=== PATIENT | female | born 1960 | race American Indian/Alaskan Native ===

== ENCOUNTER 2017-04-04 16:16 | Inpatient (IN) | payer MEDICARE ==
--- NOTE | 2017-04-04 17:34 | Emergency Department Report ---
HPI - General Chief Complaint: Allergic Reaction Time Seen by Provider: 04/04/17 17:14 - HPI HPI: Room 8 The patient is a 56-year-old female presenting with a chief complaint syncope seizure and chest pain. Patient states this morning she "blacked out" when she came to the reported she had a generalized tonic-clonic seizure. Patient states she noticed pain in her right wrist and stuttering speech. Patient states she didn't develop chest pain that was stabbing in nature associated shortness of breath and diaphoresis. Patient denies nausea or vomiting. The patient states she took 3 aspirin after 10-20 minutes the chest pain resolved. Patient states she's never had a stress test or cardiac catheterization. The patient is amnestic to the seizure event Location: [see above] Duration: [see above] Quality: Stabbing Severity: Moderate Modifying factors: [see above] Context: [see above] Mode of transportation: [not driving] ED Past Medical Hx - Past Medical History Hx Hypertension: Yes Additional medical history: Fibromyalgia, anxiety, PTSD, agoraphobia - Surgical History Hx Cholecystectomy: Yes Hx Appendectomy: Yes Additional Surgical History: Bilateral tubal ligation - Family History Family history: no significant - Social History Smoking Status: Current Every Day Smoker (smokes 1 pack of cigarettes every 2-1/ 2 days) Substance Use Type: Alcohol, Cocaine (crack- last used 7 days ago), Marijuana ED Review of Systems ROS: Stated complaint: SEIZURE Other details as noted in HPI Comment: All other systems reviewed and negative Constitutional: diaphoresis Eyes: denies: eye pain, eye discharge, vision change ENT: denies: ear pain, throat pain Respiratory: shortness of breath Cardiovascular: chest pain Endocrine: no symptoms reported Gastrointestinal: denies: nausea, vomiting Genitourinary: denies: urgency, dysuria, discharge Musculoskeletal: denies: back pain, joint swelling, arthralgia Skin: denies: rash, lesions Neurological: other (seizure, stuttering speech). denies: headache Psychiatric: denies: anxiety, depression Hematological/Lymphatic: denies: easy bleeding, easy bruising Physical Exam - Physical Exam Vital Signs: Vital Signs 04/04/17 17:10 Temperature 98.1 F Pulse Rate 105 H Respiratory 16 Rate Blood Pressure 158/72 [Left] O2 Sat by Pulse 99 Oximetry Physical Exam: GENERAL: The patient is well-developed well-nourished female lying on stretcher using cell phone. Patient has occasional stuttering speech HEENT: Normocephalic. Atraumatic. Extraocular motions are intact. Patient has moist mucous membranes. NECK: Supple. No meningitic signs are noted. Trachea midline CHEST/LUNGS: Clear to auscultation. There is no respiratory distress noted. HEART/CARDIOVASCULAR: Regular. There is no tachycardia. There is no gallop rub or murmur. ABDOMEN: Abdomen is soft, nontender. Patient has normal bowel sounds. There is no abdominal distention. SKIN: There is no rash. There is no edema. There is no diaphoresis. NEURO: The patient is awake, alert, and oriented. The patient is cooperative. The patient has no focal neurologic deficits. The patient has stuttering speech. Cranial nerves II through XII grossly intact, no drift, mixing machine tender cork rod equal bilaterally MUSCULOSKELETAL: There is no evidence of acute injury. ED Course Vital Signs 04/04/17 17:10 Temperature 98.1 F Pulse Rate 105 H Respiratory 16 Rate Blood Pressure 158/72 [Left] O2 Sat by Pulse 99 Oximetry ED Medical Decision Making - Lab Data Result diagrams: 04/04/17 18:58 04/04/17 18:58 Laboratory Tests 04/04/17 04/04/17 04/04/17 18:58 18:58 18:58 WBC 6.2 RBC 3.84 Hgb 12.4 Hct 37.0 MCV 96 MCH 32 MCHC 33 RDW 13.9 Plt Count 241 Sodium 139 Potassium 4.0 Chloride 100.6 Carbon Dioxide 26 Anion Gap 16 BUN 12 Creatinine 1.0 Estimated GFR > 60 BUN/Creatinine Ratio 12.00 Glucose 87 Calcium 8.3 L Magnesium 2.20 Total Creatine Kinase 135 CK-MB (CK-2) 1.9 CK-MB (CK-2) Rel Index 1.4 Troponin T < 0.010 TSH 2.260 Free T4 0.83 Urine Opiates Screen Urine Methadone Screen Ur Barbiturates Screen Ur Phencyclidine Scrn Ur Amphetamines Screen 04/04/17 20:00 WBC RBC Hgb Hct MCV MCH MCHC RDW Plt Count Sodium Potassium Chloride Carbon Dioxide Anion Gap BUN Creatinine Estimated GFR BUN/Creatinine Ratio Glucose Calcium Magnesium Total Creatine Kinase CK-MB (CK-2) CK-MB (CK-2) Rel Index Troponin T TSH Free T4 Urine Opiates Screen Presumptive negative Urine Methadone Screen Presumptive negative Ur Barbiturates Screen Presumptive negative Ur Phencyclidine Scrn Presumptive negative Ur Amphetamines Screen Presumptive negative - Radiology Data Radiology results: report reviewed (CT head), image reviewed (CT head, chest x- ray, right wrist x-ray) interpreted by me: Right wrist x-ray-no acute fracture Chest x-ray-no focal infiltrates, no pneumothorax CT head (read by radiologist)-normal examination - Differential Diagnosis seizure, electrolyte imbalance, ICH, ACS Critical care attestation.: If time is entered above; I have spent that time in minutes in the direct care of this critically ill patient, excluding procedure time. ED Disposition Clinical Impression: Syncope, Seizure, Chest pain Disposition: 09 OP ADMIT IP TO THIS HOSP Is pt being admited?: Yes Does the pt Need Aspirin: Yes Condition: Fair Instructions: Chest Pain (ED), Syncope (ED) Referrals: PRIMARY CARE, [Primary Care Provider] - 3-5 Days Time of Disposition: 20:36 (hospitalist paged)
[2017-04-04] MEDS ORDERED: ATIVAN IV ONE (17:35)
--- NOTE | 2017-04-04 18:16 | XRay Report ---
FINAL REPORT PROCEDURE: XR CHEST 1V AP TECHNIQUE: Chest radiograph anteroposterior view. CPT 98858 HISTORY: chest pain COMPARISON: No prior studies are available for comparison. FINDINGS: Heart: Normal. Mediastinum/Vessels: Normal. Lungs/Pleural space: Minimal atelectasis is seen at the lung bases. Bony thorax: Mild scoliosis is seen Life support devices: None. IMPRESSION: There is mild scoliosis. Minimal atelectasis is seen at the lung bases.
--- NOTE | 2017-04-04 18:18 | XRay Report ---
FINAL REPORT PROCEDURE: XR WRIST 2V RT TECHNIQUE: Two views of the right wrist are obtained. HISTORY: pain after seizure COMPARISON: No prior studies are available for comparison. FINDINGS: There may be mild osteoarthritic changes in the radiocarpal joint. No fracture or dislocation is seen. Mild soft tissue swelling is seen. IMPRESSION: Soft tissue swelling is seen and there are likely mild osteoarthritic changes.
--- NOTE | 2017-04-04 18:22 | Cat Scan Report ---
FINAL REPORT PROCEDURE: CT HEAD/BRAIN WO CON TECHNIQUE: Computerized tomography of the head was performed without contrast material. HISTORY: syncope, seizure COMPARISON: No prior studies are available for comparison. FINDINGS: The visualized portions of the paranasal sinuses are clear. Mastoid air cells are clear. There is no calvarial fracture. There is no hydrocephalus. No acute intracranial hemorrhage or mass effect is seen. There is no evidence of acute CVA. IMPRESSION: No abnormalities are seen.
[2017-04-04 19:23] LABS: Hemoglobin 12.4 gm/dl (10.1-14.3); Mean Corpuscular HGB Conc 33 % (30-34); Mean Corpuscular Hemoglobin 32 pg (28-32); Mean Corpuscular Volume 96 fl (79-97); Platelet Count 241 K/mm3 (140-440); Red Blood Count 3.84 M/mm3 (3.65-5.03); Red Cell Distribution Width 13.9 % (13.2-15.2); White Blood Count 6.2 K/mm3 (4.5-11.0)
[2017-04-04 19:32] LABS: Creatine Kinase MB 1.9 ng/mL (0.0-4.0)
[2017-04-04 19:33] LABS: Anion Gap 16 mmol/L; Blood Urea Nitrogen 12 mg/dL (7-17); Calcium 8.3 mg/dL (8.4-10.2); Carbon Dioxide 26 mmol/L (22-30); Chloride 100.6 mmol/L (98-107); Creatine Kinase 135 units/L (30-135); Glucose 87 mg/dL (65-100); Sodium 139 mmol/L (137-145)
[2017-04-04 20:02] LABS: Urine Drugs of Abuse Note Disclamer
[2017-04-04 20:31] LABS: Basophils % (Manual) 0 % (0.0-1.8); Blastocytes % (Manual) 0 %
[2017-04-04 20:32] LABS: Anisocytosis 1+; Diff Status Complete; Platelet Estimate Consistent w Auto
[2017-04-04] MEDS ORDERED: ASPIRIN PO ONE (20:36)
[2017-04-04] MEDS ORDERED: DULCOLAX PR PRN (22:13)
[2017-04-04] MEDS ORDERED: TYLENOL PO PRN (22:13)
[2017-04-04] MEDS ORDERED: MILK OF MAGNESIA PO PRN (22:13)
[2017-04-04] MEDS ORDERED: AMBIEN PO PRN (22:13)
--- NOTE | 2017-04-04 22:13 | History and Physical Report ---
History of Present Illness Date of examination: 04/04/17 Date of admission: 04/04/17 Chief complaint: New onset seizures Syncope Chest pain since 1pm History of present illness: The patient is a 56-year-old female presenting with a chief complaint seizures Syncope and chest pain. states that he witnessed generalized tonic- clonic seizure lasting for about a minute followed by a syncopal attack. This happened around 1 PM when the returned from work. After she recovered from the syncopal attack patient experienced chest pain and slurring of speech. No focal deficits. Patient states she noticed pain in her right wrist and stuttering speech. Patient states she didn't develop chest pain that was stabbing in nature associated shortness of breath and diaphoresis. Patient denies nausea or vomiting. The patient states she took 3 aspirin after 10-20 minutes the chest pain resolved. Patient states she's never had a stress test or cardiac catheterization. The patient is amnestic to the seizure event Location: [see above] Duration: [see above] Quality: Stabbing Severity: Moderate Modifying factors: [see above] Context: [see above] Mode of transportation: [not driving] ED Past Medical Hx - Past Medical History Hx Hypertension: Yes Additional medical history: Fibromyalgia, anxiety, PTSD, agoraphobia - Surgical History Hx Cholecystectomy: Yes Hx Appendectomy: Yes Additional Surgical History: Bilateral tubal ligation - Family History Family history: no significant - Social History Smoking Status: Current Every Day Smoker (smokes 1 pack of cigarettes every 2-1/ 2 days) Substance Use Type: Alcohol, Cocaine (crack- last used 7 days ago), Marijuana ED Review of Systems ROS: Stated complaint: SEIZURE Other details as noted in HPI Comment: All other systems reviewed and negative Constitutional: diaphoresis Eyes: denies: eye pain, eye discharge, vision change ENT: denies: ear pain, throat pain Respiratory: shortness of breath Cardiovascular: chest pain Endocrine: no symptoms reported Gastrointestinal: denies: nausea, vomiting Genitourinary: denies: urgency, dysuria, discharge Musculoskeletal: denies: back pain, joint swelling, arthralgia Skin: denies: rash, lesions Neurological: other (seizure, stuttering speech). denies: headache Psychiatric: denies: anxiety, depression Hematological/Lymphatic: denies: easy bleeding, easy bruising Past History Past Medical History: hypertension Medications and Allergies Allergies Allergy/AdvReac Type Severity Reaction Status Date / Time No Known Allergies Allergy Verified 04/04/17 22:20 Review of Systems All systems: negative Exam - Physical Exam Narrative exam: Lying in bed comfortably. Slurred speech while giving history. - Constitutional Vitals: Temp Pulse Resp BP Pulse Ox 98 F 78 18 110/72 98 04/04/17 21:33 04/04/17 21:33 04/04/17 21:33 04/04/17 21:33 04/04/17 21:33 General appearance: Present: no acute distress, well-nourished - EENT Eyes: Present: PERRL ENT: hearing intact, clear oral mucosa - Neck Neck: Present: supple, normal ROM - Respiratory Respiratory effort: normal Respiratory: bilateral: CTA - Cardiovascular Heart rate: 76 Heart Sounds: Present: S1 & S2. Absent: rub, click - Extremities Extremities: no ischemia, pulses symmetrical, No edema Peripheral Pulses: within normal limits - Abdominal General gastrointestinal: Present: soft, non-tender, non-distended, normal bowel sounds Female genitourinary: Present: normal - Rectal Rectal Exam: deferred - Integumentary Integumentary: Present: clear, warm, dry - Musculoskeletal Musculoskeletal: gait normal, strength equal bilaterally - Psychiatric Psychiatric: appropriate mood/affect, intact judgment & insight - Neurologic Neurologic: CNII-XII intact, moves all extremities, gait normal - Allied Health Allied health notes reviewed: nursing Results - Labs CBC & Chem 7: 04/05/17 04:35 04/05/17 04:35 Labs: Laboratory Last Values WBC 6.2 K/mm3 (4.5-11.0) 04/04/17 18:58 RBC 3.84 M/mm3 (3.65-5.03) 04/04/17 18:58 Hgb 12.4 gm/dl (10.1-14.3) 04/04/17 18:58 Hct 37.0 % (30.3-42.9) 04/04/17 18:58 MCV 96 fl (79-97) 04/04/17 18:58 MCH 32 pg (28-32) 04/04/17 18:58 MCHC 33 % (30-34) 04/04/17 18:58 RDW 13.9 % (13.2-15.2) 04/04/17 18:58 Plt Count 241 K/mm3 (140-440) 04/04/17 18:58 Add Manual Diff Complete 04/04/17 18:58 Total Counted 100 04/04/17 18:58 Seg Neuts % (Manual) 41.0 % (40.0-70.0) 04/04/17 18:58 Band Neutrophils % 0 % 04/04/17 18:58 Lymphocytes % (Manual) 43.0 % (13.4-35.0) H 04/04/17 18:58 Reactive Lymphs % (Man) 0 % 04/04/17 18:58 Monocytes % (Manual) 9.0 % (0.0-7.3) H 04/04/17 18:58 Eosinophils % (Manual) 7.0 % (0.0-4.3) H 04/04/17 18:58 Basophils % (Manual) 0 % (0.0-1.8) 04/04/17 18:58 Metamyelocytes % 0 % 04/04/17 18:58 Myelocytes % 0 % 04/04/17 18:58 Promyelocytes % 0 % 04/04/17 18:58 Blast Cells % 0 % 04/04/17 18:58 Nucleated RBC % Not Reportable 04/04/17 18:58 Seg Neutrophils # Man 2.5 K/mm3 (1.8-7.7) 04/04/17 18:58 Band Neutrophils # 0.0 K/mm3 04/04/17 18:58 Lymphocytes # (Manual) 2.7 K/mm3 (1.2-5.4) 04/04/17 18:58 Abs React Lymphs (Man) 0.0 K/mm3 04/04/17 18:58 Monocytes # (Manual) 0.6 K/mm3 (0.0-0.8) 04/04/17 18:58 Eosinophils # (Manual) 0.4 K/mm3 (0.0-0.4) 04/04/17 18:58 Basophils # (Manual) 0.0 K/mm3 (0.0-0.1) 04/04/17 18:58 Metamyelocytes # 0.0 K/mm3 04/04/17 18:58 Myelocytes # 0.0 K/mm3 04/04/17 18:58 Promyelocytes # 0.0 K/mm3 04/04/17 18:58 Blast Cells # 0.0 K/mm3 04/04/17 18:58 WBC Morphology Not Reportable 04/04/17 18:58 Hypersegmented Neuts Not Reportable 04/04/17 18:58 Hyposegmented Neuts Not Reportable 04/04/17 18:58 Hypogranular Neuts Not Reportable 04/04/17 18:58 Smudge Cells Not Reportable 04/04/17 18:58 Toxic Granulation Not Reportable 04/04/17 18:58 Toxic Vacuolation Not Reportable 04/04/17 18:58 Dohle Bodies Not Reportable 04/04/17 18:58 Pelger-Huet Anomaly Not Reportable 04/04/17 18:58 Raffy Rods Not Reportable 04/04/17 18:58 Platelet Estimate Consistent w auto 04/04/17 18:58 Clumped Platelets Not Reportable 04/04/17 18:58 Plt Clumps, EDTA Not Reportable 04/04/17 18:58 Large Platelets Not Reportable 04/04/17 18:58 Giant Platelets Not Reportable 04/04/17 18:58 Platelet Satelliting Not Reportable 04/04/17 18:58 Plt Morphology Comment Not Reportable 04/04/17 18:58 RBC Morphology Not Reportable 04/04/17 18:58 Dimorphic RBCs Not Reportable 04/04/17 18:58 Polychromasia Not Reportable 04/04/17 18:58 Hypochromasia Not Reportable 04/04/17 18:58 Poikilocytosis Not Reportable 04/04/17 18:58 Anisocytosis 1+ 04/04/17 18:58 Microcytosis Not Reportable 04/04/17 18:58 Macrocytosis Not Reportable 04/04/17 18:58 Spherocytes Not Reportable 04/04/17 18:58 Pappenheimer Bodies Not Reportable 04/04/17 18:58 Sickle Cells Not Reportable 04/04/17 18:58 Target Cells Not Reportable 04/04/17 18:58 Tear Drop Cells Not Reportable 04/04/17 18:58 Ovalocytes Not Reportable 04/04/17 18:58 Helmet Cells Not Reportable 04/04/17 18:58 Galdamez-[place] Bodies Not Reportable 04/04/17 18:58 [place] Rings Not Reportable 04/04/17 18:58 Milo Cells Not Reportable 04/04/17 18:58 Bite Cells Not Reportable 04/04/17 18:58 Crenated Cell Not Reportable 04/04/17 18:58 Elliptocytes Not Reportable 04/04/17 18:58 Acanthocytes (Spur) Not Reportable 04/04/17 18:58 Rouleaux Not Reportable 04/04/17 18:58 Hemoglobin C Crystals Not Reportable 04/04/17 18:58 Schistocytes Not Reportable 04/04/17 18:58 Malaria parasites Not Reportable 04/04/17 18:58 Efrem Bodies Not Reportable 04/04/17 18:58 Hem Pathologist Commnt No 04/04/17 18:58 Sodium 139 mmol/L (137-145) 04/04/17 18:58 Potassium 4.0 mmol/L (3.6-5.0) 04/04/17 18:58 Chloride 100.6 mmol/L (98-107) 04/04/17 18:58 Carbon Dioxide 26 mmol/L (22-30) 04/04/17 18:58 Anion Gap 16 mmol/L 04/04/17 18:58 BUN 12 mg/dL (7-17) 04/04/17 18:58 Creatinine 1.0 mg/dL (0.7-1.2) 04/04/17 18:58 Estimated GFR > 60 ml/min 04/04/17 18:58 BUN/Creatinine Ratio 12.00 % 04/04/17 18:58 Glucose 87 mg/dL (65-100) 04/04/17 18:58 Calcium 8.3 mg/dL (8.4-10.2) L 04/04/17 18:58 Magnesium 2.20 mg/dL (1.7-2.3) 04/04/17 18:58 Total Creatine Kinase 135 units/L (30-135) 04/04/17 18:58 CK-MB (CK-2) 1.9 ng/mL (0.0-4.0) 04/04/17 18:58 CK-MB (CK-2) Rel Index 1.4 (0-4) 04/04/17 18:58 Troponin T < 0.010 ng/mL (0.00-0.029) 04/04/17 18:58 TSH 2.260 mlU/mL (0.270-4.200) 04/04/17 18:58 Free T4 0.83 ng/dL (0.76-1.46) 04/04/17 18:58 Urine Opiates Screen Presumptive negative 04/04/17 20:00 Urine Methadone Screen Presumptive negative 04/04/17 20:00 Ur Barbiturates Screen Presumptive negative 04/04/17 20:00 Ur Phencyclidine Scrn Presumptive negative 04/04/17 20:00 Ur Amphetamines Screen Presumptive negative 04/04/17 20:00 U Benzodiazepines Scrn Presumptive positive 04/04/17 20:00 Urine Cocaine Screen Presumptive positive 04/04/17 20:00 U Marijuana (THC) Screen Presumptive positive 04/04/17 20:00 Drugs of Abuse Note Disclamer 04/04/17 20:00 Short CBC 04/04/17 Range/Units 18:58 WBC 6.2 (4.5-11.0) K/mm3 Hgb 12.4 (10.1-14.3) gm/dl Hct 37.0 (30.3-42.9) % Plt Count 241 (140-440) K/mm3 BMP 04/04/17 18:58 Sodium 139 Potassium 4.0 Chloride 100.6 Carbon Dioxide 26 BUN 12 Creatinine 1.0 Glucose 87 Calcium 8.3 L Cardiac Enzymes 04/04/17 Range/Units 18:58 Total Creatine Kinase 135 (30-135) units/L CK-MB (CK-2) 1.9 (0.0-4.0) ng/mL Troponin T < 0.010 (0.00-0.029) ng/mL - Imaging and Cardiology EKG: report reviewed (normal sinus rhythm heart rate of 72/m normal ST-T waves.) Assessment and Plan Advance Directives: Yes (Full code) VTE prophylaxis?: Chemical Plan of care discussed with patient/family: Yes - Patient Problems (1) New onset seizure Current Visit: Yes Status: Acute Plan to address problem: Patient started on IV Keppra 750 mg every 12 also patient to get a neurology consult. Patient may mean the EEG. Will defer to neurology. (2) Syncope Current Visit: Yes Status: Acute Qualifiers: Syncope type: unspecified Encounter type: E Qualified Code(s): R55 - Syncope and collapse Plan to address problem: Syncope workup in the form of carotid duplex scan echocardiogram and Lexiscan. (3) Chest pain Current Visit: Yes Status: Acute Qualifiers: Chest pain type: precordial pain Ischemic chest pain type: I Qualified Code(s): R07.2 - Precordial pain Plan to address problem: Serial cardiac enzymes and Lexiscan. Differential diagnosis of reflux esophagitis and costochondritis clinically considered. No chest wall tenderness present. (4) Fibromyalgia Current Visit: Yes Status: Chronic Plan to address problem: Patient not on any medications for fibromyalgia. (5) PTSD (post-traumatic stress disorder) Current Visit: Yes Status: Chronic Plan to address problem: Patient on SeroquelWill get mental health evaluation will get a mental health evaluation. Home medications not really concerned so called to be continued (6) Slurred speech Current Visit: Yes Status: Acute Plan to address problem: Etiology unclear. No focal deficits. MRI ordered. (7) DVT prophylaxis Current Visit: Yes Status: Acute Plan to address problem: Lovenox 40 mg subcutaneous daily.
[2017-04-04] MEDS ORDERED: SODIUM CHLORIDE FLUSH SYRINGE 10 ML IV PRN (22:23)
--- NOTE | 2017-04-04 22:31 | Admit Criteria Form ---
Admission Criteria Documentation: SYNCOPE Clinical Indications for Admission to Inpatient Care ( Place 'X' for any and all applicable criteria): Admission is indicated for syncope and ANY ONE of the following (1)(2)(3)(4)(5) (6)(7) : [X ]I. Inpatient admission required rather than observation care (Also use Syncope: Observation Care Criteria as appropriate) because of ANY ONE of the following: [ ]a) Hemodynamic instability that is severe or persistent [ ]b) Cardiac arrhythmias of immediate concern identified or strongly suspected (eg, needs electrophysiologic study) [ ]c) Acute coronary syndrome identified (Also use Myocardial Infarction or Angina Criteria form ) [ ]d) Structural cardiac disorder (eg, aortic stenosis) suspected as cause that requires immediate correction [ ]e) Respiratory symptoms (eg, dyspnea, tachypnea) that are severe or persistent [ ]f) Neurologic signs or symptoms that are severe or persistent ( eg, stroke, seizures, altered mental status) [ ]g) Severe electrolyte abnormalities requiring inpatient care [ ]h) Supplemental oxygen or respiratory treatment for over 24 hrs that are performable only in acute inpatient setting [ ]i) IV fluid to replace significant ongoing (eg, for over 24 hrs ) losses (>3 L/m2 per day) [ ]j) Continuous intravenous infusion of anticoagulation, platelet inhibitor, vasoactive, or antiarrhythmic medication(15)(16) [ ]k) Pulmonary artery catheter monitoring [ ]l) Temporary pacemaker placement(17) [ ]m) Emergent cardioversion(18) [X ]n) Other conditions, treatment or monitoring requiring inpatient admission [ ]II. Suspicion of imminently dangerous cause (eg, rare causes like pericardial tamponade, pulmonary embolism) [ ]III. Syncope causing severe injury requiring hospitalization Extended stay beyond goal length of stay may be needed for(28) [ ]a) Dangerous arrhythmia(15)(23)(27)(29) [ ]b) Myocardial ischemia [ ]c) Seizure disorder [ ]d) Syncope-related injuries The original [employer] content created by [employer] has been revised. The portions of the content which have been revised are identified through the use of italic text or in bold, and [employer] has neither reviewed nor approved the modified material. All other unmodified content is copyright [employer] [facility] [employer]. Please see references footnoted in the original [facility] edition 2016 Admission Criteria Met: Yes
[2017-04-04] MEDS: KEPPRA 750 MG in D5W 100 ML IV SCH (23:05)
[2017-04-04 23:20] LABS: Creatine Kinase MB 1.6 ng/mL (0.0-4.0)
[2017-04-04 23:21] LABS: Creatine Kinase 130 units/L (30-135)
[2017-04-05] MEDS: D5NS 1,000 ML IV SCH (01:13)
[2017-04-05 01:46] LABS: Creatine Kinase MB 1.6 ng/mL (0.0-4.0)
[2017-04-05 01:47] LABS: Creatine Kinase 127 units/L (30-135)
[2017-04-05 05:09] LABS: Hematocrit 35.3 % (30.3-42.9); Hemoglobin 11.6 gm/dl (10.1-14.3); Mean Corpuscular HGB Conc 33 % (30-34); Mean Corpuscular Hemoglobin 32 pg (28-32); Mean Corpuscular Volume 98 fl (79-97); Platelet Count 211 K/mm3 (140-440); Red Blood Count 3.62 M/mm3 (3.65-5.03); Red Cell Distribution Width 13.8 % (13.2-15.2); White Blood Count 5.7 K/mm3 (4.5-11.0)
[2017-04-05 05:26] LABS: Creatine Kinase MB 1.5 ng/mL (0.0-4.0)
[2017-04-05 05:28] LABS: Alanine Aminotransferase 12 units/L (7-56); Albumin 3.3 g/dL (3.9-5); Albumin/Globulin Ratio 1.1 %; Alkaline Phosphatase 51 units/L (35-129); Anion Gap 18 mmol/L; BUN/Creatinine Ratio 12.22; Blood Urea Nitrogen 11 mg/dL (7-17); Calcium 8.2 mg/dL (8.4-10.2); Carbon Dioxide 25 mmol/L (22-30); Chloride 100.7 mmol/L (98-107); Glucose 104 mg/dL (65-100); Potassium 4.2 mmol/L (3.6-5.0); Sodium 139 mmol/L (137-145); Total Protein 6.2 g/dL (6.3-8.2)
[2017-04-05 05:30] LABS: Creatine Kinase 117 units/L (30-135)
[2017-04-05 06:07] LABS: Anisocytosis 1+; Basophils % (Manual) 0 % (0.0-1.8); Blastocytes % (Manual) 0 %; Diff Status Complete; Platelet Estimate Consistent w Auto
[2017-04-05] MEDS: ZOFRAN IV PRN ×2 (08:07→15:58)
[2017-04-05] MEDS ORDERED: LEXISCAN IV ONE (10:39)
--- NOTE | 2017-04-05 11:29 | Progress Note ---
Assessment and Plan Assessment and plan: New onset seizures. Admitted to Telemetry. Patient started on Keppra. Neurology consulted. For MRI Brain Chest pain,, non cardiac. Stress test negative Syncope. Stress neg. Echo pending.. Fibromyalgia Anxiety disorder. History Interval history: Patient presents with chest pain, witnessed seizures, never had seizures before Hospitalist Physical - Constitutional Vitals: Temp Pulse Resp BP Pulse Ox 97.6 F 69 18 101/56 100 04/05/17 08:00 04/05/17 10:00 04/05/17 10:00 04/05/17 08:00 04/05/17 10:00 General appearance: Present: no acute distress, well-nourished - EENT Eyes: Present: PERRL ENT: hearing intact - Neck Neck: Present: supple - Respiratory Respiratory effort: normal Respiratory: bilateral: CTA - Cardiovascular Rhythm: regular Heart Sounds: Present: S1 & S2 (S1 and S2 reg) - Extremities Extremities: No edema - Abdominal General gastrointestinal: soft, non-tender, non-distended, normal bowel sounds - Psychiatric Psychiatric: appropriate mood/affect - Neurologic Neurologic: other (awake,alert,oriented) Results - Labs CBC & Chem 7: 04/05/17 04:35 04/05/17 04:35 Labs: Laboratory Last Values WBC 5.7 K/mm3 (4.5-11.0) 04/05/17 04:35 RBC 3.62 M/mm3 (3.65-5.03) L 04/05/17 04:35 Hgb 11.6 gm/dl (10.1-14.3) 04/05/17 04:35 Hct 35.3 % (30.3-42.9) 04/05/17 04:35 MCV 98 fl (79-97) H 04/05/17 04:35 MCH 32 pg (28-32) 04/05/17 04:35 MCHC 33 % (30-34) 04/05/17 04:35 RDW 13.8 % (13.2-15.2) 04/05/17 04:35 Plt Count 211 K/mm3 (140-440) 04/05/17 04:35 Lymph % (Auto) [place] Set[place] 04/05/17 04:35 Add Manual Diff Complete 04/05/17 04:35 Total Counted 100 04/05/17 04:35 Seg Neutrophils % [place] Setter 04/05/17 04:35 Seg Neuts % (Manual) 25.0 % (40.0-70.0) L 04/05/17 04:35 Band Neutrophils % 0 % 04/05/17 04:35 Lymphocytes % (Manual) 61.0 % (13.4-35.0) H 04/05/17 04:35 Reactive Lymphs % (Man) 0 % 04/05/17 04:35 Monocytes % (Manual) 8.0 % (0.0-7.3) H 04/05/17 04:35 Eosinophils % (Manual) 6.0 % (0.0-4.3) H 04/05/17 04:35 Basophils % (Manual) 0 % (0.0-1.8) 04/05/17 04:35 Metamyelocytes % 0 % 04/05/17 04:35 Myelocytes % 0 % 04/05/17 04:35 Promyelocytes % 0 % 04/05/17 04:35 Blast Cells % 0 % 04/05/17 04:35 Nucleated RBC % Not Reportable 04/05/17 04:35 Seg Neutrophils # Man 1.4 K/mm3 (1.8-7.7) L 04/05/17 04:35 Band Neutrophils # 0.0 K/mm3 04/05/17 04:35 Lymphocytes # (Manual) 3.5 K/mm3 (1.2-5.4) 04/05/17 04:35 Abs React Lymphs (Man) 0.0 K/mm3 04/05/17 04:35 Monocytes # (Manual) 0.5 K/mm3 (0.0-0.8) 04/05/17 04:35 Eosinophils # (Manual) 0.3 K/mm3 (0.0-0.4) 04/05/17 04:35 Basophils # (Manual) 0.0 K/mm3 (0.0-0.1) 04/05/17 04:35 Metamyelocytes # 0.0 K/mm3 04/05/17 04:35 Myelocytes # 0.0 K/mm3 04/05/17 04:35 Promyelocytes # 0.0 K/mm3 04/05/17 04:35 Blast Cells # 0.0 K/mm3 04/05/17 04:35 WBC Morphology Not Reportable 04/05/17 04:35 Hypersegmented Neuts Not Reportable 04/05/17 04:35 Hyposegmented Neuts Not Reportable 04/05/17 04:35 Hypogranular Neuts Not Reportable 04/05/17 04:35 Smudge Cells Not Reportable 04/05/17 04:35 Toxic Granulation Not Reportable 04/05/17 04:35 Toxic Vacuolation Not Reportable 04/05/17 04:35 Dohle Bodies Not Reportable 04/05/17 04:35 Pelger-Huet Anomaly Not Reportable 04/05/17 04:35 Raffy Rods Not Reportable 04/05/17 04:35 Platelet Estimate Consistent w auto 04/05/17 04:35 Clumped Platelets Not Reportable 04/05/17 04:35 Plt Clumps, EDTA Not Reportable 04/05/17 04:35 Large Platelets Not Reportable 04/05/17 04:35 Giant Platelets Not Reportable 04/05/17 04:35 Platelet Satelliting Not Reportable 04/05/17 04:35 Plt Morphology Comment Not Reportable 04/05/17 04:35 RBC Morphology Not Reportable 04/05/17 04:35 Dimorphic RBCs Not Reportable 04/05/17 04:35 Polychromasia Not Reportable 04/05/17 04:35 Hypochromasia Not Reportable 04/05/17 04:35 Poikilocytosis Not Reportable 04/05/17 04:35 Anisocytosis 1+ 04/05/17 04:35 Microcytosis Not Reportable 04/05/17 04:35 Macrocytosis Not Reportable 04/05/17 04:35 Spherocytes Not Reportable 04/05/17 04:35 Pappenheimer Bodies Not Reportable 04/05/17 04:35 Sickle Cells Not Reportable 04/05/17 04:35 Target Cells Not Reportable 04/05/17 04:35 Tear Drop Cells Not Reportable 04/05/17 04:35 Ovalocytes Not Reportable 04/05/17 04:35 Helmet Cells Not Reportable 04/05/17 04:35 [place] Bodies Not Reportable 04/05/17 04:35 [place] Rings Not Reportable 04/05/17 04:35 Milo Cells Not Reportable 04/05/17 04:35 Bite Cells Not Reportable 04/05/17 04:35 Crenated Cell Not Reportable 04/05/17 04:35 Elliptocytes Not Reportable 04/05/17 04:35 Acanthocytes (Spur) Not Reportable 04/05/17 04:35 Rouleaux Not Reportable 04/05/17 04:35 Hemoglobin C Crystals Not Reportable 04/05/17 04:35 Schistocytes Not Reportable 04/05/17 04:35 Malaria parasites Not Reportable 04/05/17 04:35 Efrem Bodies Not Reportable 04/05/17 04:35 Hem Pathologist Commnt No 04/05/17 04:35 Sodium 139 mmol/L (137-145) 04/05/17 04:35 Potassium 4.2 mmol/L (3.6-5.0) 04/05/17 04:35 Chloride 100.7 mmol/L (98-107) 04/05/17 04:35 Carbon Dioxide 25 mmol/L (22-30) 04/05/17 04:35 Anion Gap 18 mmol/L 04/05/17 04:35 BUN 11 mg/dL (7-17) 04/05/17 04:35 Creatinine 0.9 mg/dL (0.7-1.2) 04/05/17 04:35 Estimated GFR > 60 ml/min 04/05/17 04:35 BUN/Creatinine Ratio 12.22 % 04/05/17 04:35 Glucose 104 mg/dL (65-100) H 04/05/17 04:35 Hemoglobin A1c 5.2 % (4-6) 04/04/17 22:46 Calcium 8.2 mg/dL (8.4-10.2) L 04/05/17 04:35 Magnesium 2.20 mg/dL (1.7-2.3) 04/04/17 18:58 Total Bilirubin 0.20 mg/dL (0.1-1.2) 04/05/17 04:35 AST 15 units/L (5-40) 04/05/17 04:35 ALT 12 units/L (7-56) 04/05/17 04:35 Alkaline Phosphatase 51 units/L (35-129) 04/05/17 04:35 Total Creatine Kinase 117 units/L (30-135) 04/05/17 04:35 CK-MB (CK-2) 1.5 ng/mL (0.0-4.0) 04/05/17 04:35 CK-MB (CK-2) Rel Index 1.2 (0-4) 04/05/17 04:35 Troponin T < 0.010 ng/mL (0.00-0.029) 04/05/17 04:35 Total Protein 6.2 g/dL (6.3-8.2) L 04/05/17 04:35 Albumin 3.3 g/dL (3.9-5) L 04/05/17 04:35 Albumin/Globulin Ratio 1.1 % 04/05/17 04:35 TSH 2.260 mlU/mL (0.270-4.200) 04/04/17 18:58 Free T4 0.83 ng/dL (0.76-1.46) 04/04/17 18:58 Urine Opiates Screen Presumptive negative 04/04/17 20:00 Urine Methadone Screen Presumptive negative 04/04/17 20:00 Ur Barbiturates Screen Presumptive negative 04/04/17 20:00 Ur Phencyclidine Scrn Presumptive negative 04/04/17 20:00 Ur Amphetamines Screen Presumptive negative 04/04/17 20:00 U Benzodiazepines Scrn Presumptive positive 04/04/17 20:00 Urine Cocaine Screen Presumptive positive 04/04/17 20:00 U Marijuana (THC) Screen Presumptive positive 04/04/17 20:00 Drugs of Abuse Note Disclamer 04/04/17 20:00
--- NOTE | 2017-04-05 11:51 | Event Note ---
Date: 04/05/17 I attempted to see this patient between my scheduled coverage time of 8 AM-12 PM but they were not present in the floor room. I will return to staff in consultation 04/06.
[2017-04-05] MEDS ORDERED: FLUARIX QUAD 2016-2017(36 MOS+) IM ONE (12:00)
[2017-04-05] MEDS: PERCOCET 5/325 PO PRN ×2 (12:32→20:06)
[2017-04-05] MEDS: LOVENOX SUB-Q SCH (12:33)
[2017-04-05] MEDS: KEPPRA 750 MG in D5W 100 ML IV SCH ×2 (12:33→21:18)
[2017-04-05] MEDS: MORPHINE IV PRN (17:56)
[2017-04-05] MEDS ORDERED: MS CONTIN ER PO PRN (20:56)
[2017-04-05] MEDS ORDERED: SINEquan PO SCH (22:00)
--- NOTE | 2017-04-06 00:24 | Treadmill Report ---
THALLIUM STRESS TEST LEFT VENTRICLE: Left ventricular chamber size is within normal. Perfusion study demonstrates normal apical thinning, otherwise homogeneous uptake of the tracer in all segments. No significant perfusion defects identified. Gated analysis demonstrates normal left ventricular systolic function, ejection fraction 73%. CONCLUSION: Normal myocardial perfusion study. JOB# [id number] CA/NTS
[2017-04-06] MEDS: D5NS 1,000 ML IV SCH ×2 (01:02→06:34)
[2017-04-06] MEDS: PERCOCET 5/325 PO PRN ×2 (04:55→12:25)
[2017-04-06 08:40] VITALS: BP 95/53
[2017-04-06] MEDS ORDERED: ATIVAN IV PRN (09:08)
[2017-04-06] MEDS: MORPHINE IV PRN (09:16)
--- NOTE | 2017-04-06 10:15 | Electroencephalogram Report ---
Electroencephalogram EEG Date of exam: 04/06/17 History: 56 YO F p/w reported seizure. Impression: Normal awake and drowsy 20 minute routine EEG. There are no findings to suggest cerebral dysfunction, cortical irritability, epileptiform discharges or electrographic seizures. Please note however that a normal EEG does not completely exclude a clinical diagnosis of epilepsy. Description: The waking background shows an appropriate organization with well-defined anterior posterior voltage and frequency gradients. Posteriorly, there is a well -developed alpha rhythm of 9-10 Hz which is symmetrical and bilaterally reactive. Anteriorly, there is a pattern of lower voltage and slightly irregular theta and beta range frequencies. During drowsiness, there is attenuation of the background rhythms. There is no sleep background. Throughout, the recording there are no epileptiform abnormalities, focal or lateralizing features, or significant interhemispheric findings. Interpretation: :This is a digitally acquired 21-channel electroencephalogram. Both bipolar and referential montages were used in interpretation. Electrodes were placed in accordance with the International 10-20 system.
[2017-04-06] MEDS ORDERED: MORPHINE PO PRN (10:42)
[2017-04-06] MEDS ORDERED: FLUARIX QUAD 2016-2017(36 MOS+) IM ONE (12:00)
--- NOTE | 2017-04-06 12:06 | Magnetic Resonance Report ---
MRI BRAIN WITH/WITHOUT CONTRAST: History: Seizure. Technique: Multiple T1 and T2 weighted images were obtained in multiple planes. Axial diffusion and gradient imaging was performed. Post contrast T1 images in two planes were obtained following IV gadolinium. Findings: The brain parenchyma signal intensity and its chan-white interface are normal on all sequences. No abnormal parenchymal signal. No diffusion restriction, hemorrhage, mass effect or extra-axial fluid collection. Ventricular size is normal and symmetric. The basal cisterns are clear. The brainstem and cerebellar hemispheres are within normal limits. The fourth ventricle is midline. The paranasal sinuses and mastoid air cells are well aerated. Normal flow voids are identified in the appropriate vessels at the [place]. No abnormal enhancement is identified following IV gadolinium. Impression: 1. Unremarkable MRI brain with and without contrast.
[2017-04-06] MEDS: LOVENOX SUB-Q SCH (12:26)
--- NOTE | 2017-04-06 12:36 | Discharge Summary ---
Providers - Providers Date of Admission: 04/04/17 22:13 Date of discharge: 04/06/17 Attending physician: LEONARDO FENTON MD 04/04/17 Consult to Cardiac Rehabilitation [CONS] Routine Reason For Exam: Phase I 04/05/17 00:39 Physical Therapy Evaluation and Treat [CONS] Routine Comment: Reason For Exam: right sided weakness 04/06/17 09:11 Speech Therapy Evaluation and Treat [CONS] Urgent Reason For Exam: dysathria Primary care physician: EMERGENCY NURSE Hospitalization Reason for admission: seizure Condition: Stable Hospital course: The patient is a 56-year-old female presenting with a chief complaint seizures Syncope and chest pain. states that he witnessed generalized tonic- clonic seizure lasting for about a minute followed by a syncopal attack. This happened around 1 PM when the returned from work. After she recovered from the syncopal attack patient experienced chest pain and slurring of speech. No focal deficits. Patient states she noticed pain in her right wrist and stuttering speech. Patient states she didn't develop chest pain that was stabbing in nature associated shortness of breath and diaphoresis. Patient denies nausea or vomiting. The patient states she took 3 aspirin after 10-20 minutes the chest pain resolved. Patient states she's never had a stress test or cardiac catheterization. The patient is amnestic to the seizure event. Apparently the patient was recently on Vistaril and Wellbutrin which she received that [facility]. Patient did have an MRI brain plus and negative telemetry DM which was negative EEG was also normal. Neurology did see the patient was suspected that the Wellbutrin may have reduced seizure threshold. This was not helped with ongoing postnasal sinus abuse with urine drug screen being positive for benzos cocaine and THC. Patient currently stable does have intermittent right upper extremity weakness but otherwise unremarkable she is clinically stable at this point for discharge she is not to drive for at least 6 months until seen by neurology. She is to follow with psychiatrist primary care physician outpatient. Extensive counseling was provided to the patient against substance abuse. Patient verbalized understanding Discharge diagnosis * Seizure * Polysubstance abuse with cocaine and marijuana abuse * Atypical chest pain likely costochondritis * Syncope * FibroMyalgia * Anxiety disorder Disposition: [id number]/[place]-06 [facility] Time spent for discharge: 35 mins Core Measure Documentation - Palliative Care Palliative Care/ Comfort Measures: Not Applicable - Core Measures Any of the following diagnoses?: none - VTE Discharge Requirements Deep Vein Thrombosis/Pulmonary Embolism Present on Admission: No Exam - Physical Exam Narrative exam: VITAL SIGNS: Reviewed. GENERAL: The patient appeared older than stated age, chronically ill.. Vital signs as documented. HEAD: No signs of head trauma. EYES: Pupils are equal. Extraocular motions intact. EARS: Hearing grossly intact. MOUTH: Oropharynx is normal. NECK: No adenopathy, no JVD. CHEST: Chest with clear breath sounds bilaterally. No wheezes, rales, or rhonchi. CARDIAC: Regular rate and rhythm. S1 and S2, without murmurs, gallops, or rubs. VASCULAR: No Edema. Peripheral pulses normal and equal in all extremities. ABDOMEN: Soft, without detectable tenderness. No sign of distention. No rebound or guarding, and no masses palpated. Bowel Sounds normal. MUSCULOSKELETAL: Good range of motion of all major joints. Extremities without clubbing, cyanosis or edema. NEUROLOGIC EXAM: Alert and oriented x 3. No focal sensory or strength deficits. Speech normal sometimes on intermittently offense to have a slurred on repeat towards she was able to speak fluently. Follows commands. PSYCHIATRIC: Mood normal. SKIN: No rash or lesions. - Constitutional Vitals: Temp Pulse Resp BP Pulse Ox 98.6 F 78 18 95/53 95 04/06/17 07:15 04/06/17 07:15 04/06/17 07:15 04/06/17 07:15 04/06/17 07:15 Plan Activity: advance as tolerated, no driving until cleared by PCP (no driving or diving at untill seen by neurologist), fall precautions Diet: low fat, low cholesterol Special Instructions: record daily BP diary Follow up with: PRIMARY CARE, [Primary Care Provider] - 3-5 Days TAO NGUYEN MD [Staff Physician] - 7 Days Prescriptions: Simvastatin [Zocor TAB] 20 mg PO QHS #30 tablet Aspirin [Adult Low Dose Aspirin EC] 81 mg PO DAILY #30 tablet. levETIRAcetam [Keppra TAB] 750 mg PO BID #60 tablet
--- NOTE | 2017-04-06 13:36 | Consultation ---
History of Present Illness Consult date: 04/06/17 Requesting physician: ZION ROMERO Reason for Consult: seizure Chief complaint: seizure History of present illness: The patient is a 56-year-old female Hx psych disease on Wellbutyrn who was a/w reported witnessed Sz @ home 04/04 @ 1 PM. states that he witnessed Pt lose consciousness and have diffuse motor convulsive activity. Patient states that since then she noticed pain in her right wrist and stuttering speech. Patient states she didn't develop chest pain that was stabbing in nature associated shortness of breath and diaphoresis. There were no clear aggravating , relieving or temporal factors. severity such to cause LOC. Pt denies personal hx of head trauma, childhood or adult seizures, meningitis or encephalitis. Similarly pt does not have a FHx of seizure d/o. Past History Past Medical History: hypertension Past Surgical History: No surgical history Social history: , lives with family, smoking Family history: denies: no significant family history Medications and Allergies Allergies Allergy/AdvReac Type Severity Reaction Status Date / Time No Known Allergies Allergy Verified 04/04/17 22:20 Home Medications Medication Instructions Recorded Confirmed Last Taken Type Doxepin [SINEquan] 100 mg PO QHS 04/05/17 04/05/17 Unknown History Aspirin [Adult Low Dose Aspirin EC] 81 mg PO DAILY #30 tablet. 04/06/17 Unknown Rx Simvastatin [Zocor TAB] 20 mg PO QHS #30 tablet 04/06/17 Unknown Rx levETIRAcetam [Keppra TAB] 750 mg PO BID #60 tablet 04/06/17 Unknown Rx Active Meds: Active Medications Acetaminophen (Tylenol) 650 mg PO Q4H PRN PRN Reason: Pain MILD(1-3)/Fever >100.5/AVALOS Bisacodyl (Dulcolax) 10 mg ID QDAY PRN PRN Reason: Constipation unrelieved by MOM Doxepin HCl (Sinequan) 100 mg PO QHS [facility] Last Admin: 04/05/17 21:18 Dose: 100 mg Enoxaparin Sodium (Lovenox) 40 mg SUB-Q QDAY KARLEE Last Admin: 04/06/17 12:26 Dose: 40 mg Dextrose/Sodium Chloride (D5ns) 1,000 mls @ 100 mls/hr IV DIRECT KARLEE Last Admin: 04/06/17 06:34 Dose: 100 mls/hr Levetiracetam (Keppra) 750 mg PO BID KARLEE Lorazepam (Ativan) 1 mg IV Q4H PRN PRN Reason: Agitation Last Admin: 04/06/17 09:16 Dose: 1 mg Magnesium Hydroxide (Milk Of Magnesia) 30 ml PO Q4H PRN PRN Reason: Constipation Morphine Sulfate (Morphine) 2 mg IV Q4H PRN PRN Reason: Pain, Moderate (4-6) Last Admin: 04/06/17 09:16 Dose: 2 mg Morphine Sulfate (Morphine) 15 mg PO BID PRN PRN Reason: Pain, Moderate (4-6) Ondansetron HCl (Zofran) 4 mg IV Q8H PRN PRN Reason: N/V unrelieved by Reglan Last Admin: 04/05/17 15:58 Dose: 4 mg Oxycodone/Acetaminophen (Percocet 5/325) 1 tab PO Q6H PRN PRN Reason: Pain, Moderate (4-6) Last Admin: 04/06/17 12:25 Dose: 1 tab Sodium Chloride (Sodium Chloride Flush Syringe 10 Ml) 10 ml IV PRN PRN PRN Reason: LINE FLUSH Zolpidem Tartrate (Ambien) 5 mg PO QHS PRN PRN Reason: Insomnia Last Admin: 04/05/17 01:19 Dose: 5 mg Review of Systems All systems: negative Constitutional: fatigue Musculoskeletal: shooting arm pain Neurological: weakness (all over), seizures, syncope, headaches, change in speech (slurred ), confusion, motor disturbance (R arm w/ pain), sensory deficit (decr on R with pain), no gait dysfunction Psychiatric: anxiety, depression, difficulties concentrating, no suicidal ideation, no hallucinations Physical Examination - Vital Signs Vital Signs: Vital Signs Temp Pulse Resp BP Pulse Ox 98.1 F 105 H 16 158/72 99 04/04/17 17:10 04/04/17 17:10 04/04/17 17:10 04/04/17 17:10 04/04/17 17:10 - Constitutional General appearance: comfortable, chronically ill, older than stated age - EENT EENT: Present: ATNC, PERRL, mucous membranes moist, hearing intact, vision intact - Respiratory Respiratory: Present: chest non-tender, normal breath sounds, no respiratory distress - Cardiovascular Cardiovascular: Present: regular rate Extremities: Present: no peripheral edema bilatateraly, no clubbing, cyanosis, no inflammation, no ischemia or petechiae - Gastrointestinal Gastrointestinal: Present: normoactive bowel sounds, soft, non-distended - Integumentary Integumentary: Present: normal - Neurologic Cranial nerve examination: PERRL, EOMI, VFF, V1/V2/V3 grossly intact, face symmetric, tongue midline, intact, intact shoulder shrug, Intact Vestibulo- ocular r, intact corneal reflex, normal palatal elevation Speech examination: intact Sensorimotor examination: intact Detailed motor examination: grossly full strength in Motor examination - right side: 5/5: biceps, triceps, wrist flexion, wrist extension, bobtailer, hip flexors, knee extensors, dorsiflexion, toe extension (EHL) , plantarflexion Motor examination - left side: 5/5: biceps, triceps, wrist flexion, wrist extension, bobtailer, hip flexors, knee extensors, dorsiflexion, toe extension (EHL) , plantarflexion Detailed sensory examination: intact, light touch, temperature Reflex and gait examination: intact Reflexes: 1+: ankle, 2+: bicep, knee, tricep - Musculoskeletal Musculoskeletal: Present: other (R arm pain w/ limited ROM) - Psychiatric Psychiatric: Present: mood/affect appropriate, cooperative Results - Laboratory Findings CBC and BMP: 04/05/17 04:35 04/05/17 04:35 Abnormal Lab Findings: Abnormal Labs 04/05/17 04/05/17 04:35 04:35 RBC 3.62 L MCV 98 H Seg Neuts % (Manual) 25.0 L Lymphocytes % (Manual) 61.0 H Monocytes % (Manual) 8.0 H Eosinophils % (Manual) 6.0 H Seg Neutrophils # Man 1.4 L Glucose 104 H Calcium 8.2 L Total Protein 6.2 L Albumin 3.3 L Assessment and Plan 56 YO F Hx Psych disease who reports recent use of Vystoril and Wellbutryn @ [facility] and who p/w reported witnessed LOC w/ convulsion on . Pt has no seizure risk factors otherwise and is back to baseline aside from painful R arm limiting motor effort but power appears intact . Neuro exam symmetric nonfocal intact w/o deficits. MRI Brain +/- Yao neg. EEG normal. I suspect first lifetime provoked seizure d/t Wellbutryn dayna lowering Sz threshold and ongoing polysubstance abuse as UDS + BZD/cocaine/THC. TSH neg, Plan and Recommendation: 1. Telemetry bed w/ Q4 hour neuro checks & Sz precautions 2. Labs: Serum/Urine Tox, UA/UCx, Electrolytes especially Na, Ca, Mg, and Glucose, Ammonia and correct as necessary 3. Cont Infectious work up/medical management for UTI, PNA, cellulitis, bacteremia, etc. 4. Avoid hyponatremia, hypo/hyper-calcemia, hypo/hyperglycemia, acidosis, hypoxia/hypoxemia, hypercarbia/hypercapnia 5. Avoid institution of any psychoactive medications (e.g. antihistamines, anticholinergics, BZD, hypnotics, opiates) as able unless low doses of low potency antipsychotic needed for behavioral issues complicating medical care. Taper off Wellbutyrn as able 6. AED therapy: Defer @ this time but will need to re-eval if recurrent seizure 7. Avoid meds that can lower sz threshold e.g. Tramadol, fluroquinolones, carbapenems 8. If suspicion for EtOH dependence would supplement Thiamine, Folate and B12 9. Pt advised of [place] driving regulations: report date of presumed Seizure/ unexplained loss of consciousness/awareness spell to [facility], refrain from operating a motor vehicle for 6 months after this date, and avoid unsupervised activity particularly around water or heights 10. Neurologically clear for discharge if remains stable and resolved fully to baseline w/o recurrent seizure for 24 hrs.
[2017-04-06] MEDS ORDERED: KEPPRA PO SCH (22:00)
--- NOTE | 2017-04-07 12:05 | Vascular Lab Report ---
CAROTID DUPLEX STUDY: RIGHT PSVEDV CCA PROX:[id number] CCA DIST: 6420 ICA PROX: 4710 ICA MID: 6426 ICA DIST: 6827 ECA: 64 VERT: 45 17 LEFT PSVEDV CCA PROX: 92 22 CCA DIST: 5818 ICA PROX: 4815 ICA MID: 7027 ICA DIST: 8635 ECA: 55 VERT: 56 15 REASON FOR EXAM: Right-sided weakness/facial numbness. COMMENTS ON THE RIGHT: Doppler frequency analysis is consistent with 16 to 49 percent diameter reduction of the internal carotid artery. Minimal amount of plaque is seen. The common carotid artery is patent. The external carotid artery is patent. The vertebral artery has antegrade flow. COMMENTS ON THE LEFT: Doppler frequency analysis is consistent with 16 to 49 percent diameter reduction of the internal carotid artery. Minimal amount of plaque is seen. The common carotid artery is patent. The external carotid artery is patent. The vertebral artery has antegrade flow. IMPRESSION: Less than 50% diameter reduction in the internal carotid arteries bilaterally. Consider repeat carotid artery duplex in 12 months.
== END 2017-04-06 14:39 | disposition home or self-care (01) | DRG 206 ==
LOC: ED 16:16 → 4A 22:13
PROVIDERS: ADMIT Internal Medicine; ATTEND Internal Medicine
DX: M94.0 Chondrocostal junction syndrome [Tietze] (principal); F14.129 Cocaine abuse with intoxication, unspecified; R56.9 Unspecified convulsions; M79.7 Fibromyalgia; F43.10 Post-traumatic stress disorder, unspecified; R47.81 Slurred speech; I10 Essential (primary) hypertension; F41.9 Anxiety disorder, unspecified; F17.210 Nicotine dependence, cigarettes, uncomplicated; F12.10 Cannabis abuse, uncomplicated; R55 Syncope and collapse; Z90.49 Acquired absence of other specified parts of digestive tract; Z98.51 Tubal ligation status
CPT/HCPCS: 36415; 70450; 70553; 71010; 78452; 80048; 80053; 80307; 82140; 82550; 82553; 83036; 83735; 84439; 84443; 84484; 85007; 85025; 90686; 93005; 93010; 93017; 93306; 93880; 95819; 96365; 96366; 96375; A9502; A9577; J1650; J1953; J2060; J2270; J2405; J2785; J7042